=== PATIENT | female | born 1950 | race Caucasian/White ===

== ENCOUNTER → 2018-01-08 | Outpatient (CLI) | payer OTHER ==
[~2018-01-08] MED LIST: ALPHAGAN OPL; ASPEC325 PO; CHOL100010 PO; CLS1 PO; CLTP PO; CRG625 PO; CZR25 PO; HYDR-5688 PO; LACT1CAP6 PO; LOVAZA PO; OXYSR10 PO; PANT40TA PO; SNG10 PO
--- NOTE | 2018-01-08 10:01 | DIAGNOSTIC IMAGING REPORT ---
R ARTHROGRAM SHOULDER CLINICAL HISTORY: RIGHT SHOULDER PAIN, R/O ROTATOR CUFF TEARpain COMPARISON STUDY: None FLUOROSCOPY TIME: 0.5 minutes. FINDINGS: Following description of procedure and informed consent, a 20-gauge was inserted to the right shoulder joint space. This is followed by the administration of 10 cc of nonionic contrast. There are no complications. The patient was transferred to CT scanning for further evaluation. IMPRESSION: Right shoulder arthrogram injection. No complications of the time of the procedure. The above report was generated using voice recognition software. It may contain grammatical, syntax or spelling errors. Electronically signed by: Richard Fleming M.D. 01/08/2018 10:00 AM Dictated Date/Time: 01/08/2018 9:59 AM
--- NOTE | 2018-01-08 10:13 | DIAGNOSTIC IMAGING REPORT ---
UPPER EXTREMITY WITH CLINICAL HISTORY: R/O ROTATOR CUFF TEAR pain TECHNIQUE: CT acquisition transaxially with multi axial reformatted images. Prior right shoulder arthrogram COMPARISON STUDY: None FINDINGS: Mild degenerative change of the glenohumeral as well as acromioclavicular joints. Bony alignment is anatomic. Contrast extravasation into the subdeltoid and subacromial regions. Evidence for full-thickness tear of the mid anterior aspect of the supraspinatus tendon. All remaining components of the rotator cuff. To be intact. Biceps tendon is intact within the bicipital groove. Glenoid labrum appears to be unremarkable. IMPRESSION: 1. Findings consistent with a full-thickness tear of the mid to anterior margin of the supraspinatus tendon. 2. Mild degenerative changes of glenohumeral as well as acromioclavicular joints. 3. No additional acute abnormalities appreciated. The above report was generated using voice recognition software. It may contain grammatical, syntax or spelling errors. Electronically signed by: Richard Fleming M.D. 01/08/2018 10:12 AM Dictated Date/Time: 01/08/2018 10:06 AM
== END | disposition home or self-care (01) ==
LOC: C.CTS 08:48
PROVIDERS: ATTEND Orthopaedic Surgery
DX: M25.511 Pain in right shoulder (principal)

== ENCOUNTER → 2018-01-16 | Outpatient (CLI) | payer OTHER ==
--- NOTE | 2018-01-16 18:11 | DIAGNOSTIC IMAGING REPORT ---
THREE-PHASE NUCLEAR BONE SCAN OF THE KNEES CLINICAL HISTORY: Left knee pain. COMPARISON STUDY: Three-phase bone scan of the knees dated 10/29/2014. Radiographs of left knee dated 12/01/2014. TECHNIQUE: Following the IV administration of 25 mCi of technetium 99m MDP, three-phase bone scan of the knees was performed. Flow and blood pool phase imaging is performed both anteriorly and posteriorly. Bone phase imaging of the knees was performed at three hours in multiple obliquities. Note that interpretation is suboptimal without current plain film correlate. FINDINGS: There is no hyperemia identified involving either knee on the flow or blood pool phase images. On the bone phase images there is a photopenic defect consistent with a left knee arthroplasty. No significant abnormal tracer deposition is identified around the arthroplasty. Low-level uptake along the tibial component is likely within normal limits. Typically degenerative activity is identified in the right knee. IMPRESSION: Three-phase negative bone scan of the left knee. Electronically signed by: Jm Brandon M.D. 01/16/2018 6:10 PM Dictated Date/Time: 01/16/2018 6:07 PM
== END | disposition home or self-care (01) ==
LOC: C.NUCL 13:26
PROVIDERS: ATTEND Orthopaedic Surgery
DX: Z96.652 Presence of left artificial knee joint (principal)

== ENCOUNTER 2025-09-12 17:10 | Observation (INO) ==
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
[2025-09-12 18:47] LABS: Appearance Urine Clear (Clear); Bacteria Urine Automated None Seen (None Seen); Cast Urine Automated 0-2 /lpf (0-2); Epithelial Cell Urine Auto 0-2 /hpf (0-2); Glucose Urine UA Negative (Negative); RBC Urine Automated 0-2 /hpf (0-2); WBC Urine Automated 0-5 /hpf (0-5)
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
[2025-09-12 19:46] LABS: Chlamydia pneumoniae PCR Not Detected (NotDetected); Coronavirus 229E PCR Not Detected (NotDetected); Coronavirus CoV-2 (COVID19)PCR Not Detected (NotDetected); Coronavirus HKU1 PCR Not Detected (NotDetected); Coronavirus NL63 PCR Not Detected (NotDetected); Coronavirus OC43PCR Not Detected (NotDetected); Human Metapneumovirus PCR Not Detected (NotDetected); Parainfluenza Virus 1 PCR Not Detected (NotDetected); Parainfluenza Virus 2 PCR Not Detected (NotDetected); Parainfluenza Virus 3 PCR Not Detected (NotDetected); Parainfluenza Virus 4 PCR Not Detected (NotDetected); Respiratory Syncytial VirusPCR Not Detected (NotDetected); Rhinovirus/Enterovirus PCR Not Detected (NotDetected)
[2025-09-12 19:54] LABS: Hematocrit (blood only) 42.6 % (37.0-47.0); Hemoglobin 13.8 g/dl (12.0-16.0); Immature Granulocytes # (auto) 0.07 K/uL (0.01-0.20); Immature Granulocytes % (auto) 0.6 %; Mean Corpuscular Hemoglobin 27.8 pg (25.0-34.0); Mean Corpuscular Volume 85.9 fL (80.0-100.0); Platelet Count 370 K/uL (130-400); RDW Standard Deviation 40.7 fL (36.4-46.3); Red Blood Count 4.96 M/uL (4.20-5.40); White Blood Count 12.65 K/ul (4.8-10.8)
[2025-09-12 19:55] LABS: Base Excess VBG 5.2 mEq/L; HCO3 VBG 33 mmol/L; Oxygen Saturation VBG < 60.0 %; PCO2 VBG 59 mmHg (38-50); PO2 VBG 30 mmHg; pH VBG 7.35 (7.36-7.41)
[2025-09-12 20:11] LABS: Alanine Aminotransferase 18.0 U/L (7-52); Albumin Globulin Ratio 1.3 (0.9-2); Albumin Level 4.7 gm/dl (3.4-5.0); Alkaline Phosphatase 82.0 U/L (34-104); Anion Gap 9.0 (3-11); Bilirubin,Total 0.6 mg/dl (0.2-1.0); Blood Urea Nitrogen 14.0 mg/dl (6-23); Calcium 10.5 mg/dl (8.6-10.3); Carbon Dioxide 30.0 mmol/L (21-32); Chloride 102.0 mmol/L (98-107); Creatinine Clr Calc Pharmacy 48.8 ml/min; Globulin 3.7 gm/dl (2.5-4.0); Glucose 126.0 mg/dl (70-99(Fasting)); Magnesium 2.0 mg/dl (1.7-2.4); Potassium 3.9 mmol/L (3.5-5.1); Sodium 141.0 mmol/L (136-145); Total Protein 8.4 gm/dl (6.0-8.3)
[2025-09-12] MEDS: ACETAMINOPHEN 1,000 MG/100 ML VIAL IV STA (20:18)
[2025-09-12] MEDS: ONDANSETRON INJ 2 MG/ML 2 ML VIAL IV STA (21:46)
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
[2025-09-12] MEDS ORDERED: SODIUM CHLORIDE 0.65% NA SOLN 45 ML (OCEAN) PRN (22:39)
[2025-09-12] MEDS ORDERED: PROMETHAZINE 6.25 MG/50.25 ML BAG IV PRN (22:39)
[2025-09-12] MEDS ORDERED: ACETAMINOPHEN 325 MG TAB PO PRN (22:40)
[2025-09-12] MEDS: METOPROLOL TARTRATE 1 MG/ML VIAL IV STA (23:55)
[2025-09-12] MEDS: NSS + 20MEQ KCL 20 MEQ/1,000 ML BAG IV ONE (23:56)
[2025-09-13] MEDS: SODIUM CHLORIDE 0.65% NA SOLN 45 ML (OCEAN) ONE (00:10)
[2025-09-13] MEDS: BRIMONIDINE TARTRATE 0.2% 5ML OPL ONE (02:01)
[2025-09-13] MEDS: TRAVOPROST Z 0.004% OPH SOLN 2.5 ML BTL OPL SCH (02:01)
[2025-09-13] MEDS: METOPROLOL TARTRATE 1 MG/ML VIAL IV STA (02:13)
[2025-09-13] MEDS: POT PHOSPHATE MONOBASIC W/ SOD TAB PO STA (02:13)
[2025-09-13] MEDS: LOSARTAN POTASSIUM 50 MG TAB PO SCH (02:40)
[2025-09-13 03:06] LABS: Calcium 10.1 mg/dl (8.6-10.3)
[2025-09-13 05:11] LABS: Hematocrit (blood only) 37.2 % (37.0-47.0); Hemoglobin 12.7 g/dl (12.0-16.0); Immature Granulocytes # (auto) 0.04 K/uL (0.01-0.20); Immature Granulocytes % (auto) 0.4 %; Mean Corpuscular Hemoglobin 29.1 pg (25.0-34.0); Mean Corpuscular Volume 85.1 fL (80.0-100.0); Platelet Count 324 K/uL (130-400); RDW Standard Deviation 39.7 fL (36.4-46.3); Red Blood Count 4.37 M/uL (4.20-5.40); White Blood Count 10.66 K/ul (4.8-10.8)
[2025-09-13 05:26] LABS: Anion Gap 7.0 (3-11); Blood Urea Nitrogen 14.0 mg/dl (6-23); Calcium 9.5 mg/dl (8.6-10.3); Carbon Dioxide 28.0 mmol/L (21-32); Chloride 105.0 mmol/L (98-107); Creatinine Clr Calc Pharmacy 55.2 ml/min; Glucose 120.0 mg/dl (70-99(Fasting)); Potassium 4.2 mmol/L (3.5-5.1); Sodium 140.0 mmol/L (136-145)
[2025-09-13] MEDS: EZETIMIBE 10 MG TAB PO SCH (08:05)
[2025-09-13] MEDS: CYANOCOBALAMIN (B-12) 500 MCG TABLET PO SCH (08:05)
[2025-09-13] MEDS: CEROVITE ADV FORMULA TAB PO SCH (08:05)
[2025-09-13] MEDS: MONTELUKAST SODIUM 10 MG TABLET PO SCH (08:06)
[2025-09-13] MEDS: CHOLECALCIFEROL 125 MCG (5,000 UNITS) TAB PO SCH (08:06)
[2025-09-13] MEDS: ASPIRIN 81 MG ECTAB PO SCH (08:06)
[2025-09-13] MEDS: LORATADINE 10 MG TAB PO SCH (08:07)
[2025-09-13] MEDS: BRIMONIDINE TARTRATE 0.2% 5ML OPL SCH (08:08)
[2025-09-13] MEDS: ENOXAPARIN INJ 40 MG/0.4 ML SYR SQ SCH (08:08)
[2025-09-13] MEDS ORDERED: LOSARTAN POTASSIUM 50 MG TAB PO SCH (09:00)
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
--- NOTE | 2025-09-13 11:51 | Electrocardiogram Report ---
Test Reason : Blood Pressure : */* mmHG Vent. Rate : 77 BPM Atrial Rate : 77 BPM P-R Int : 172 ms QRS Dur : 90 ms QT Int : 374 ms P-R-T Axes : 43 12 49 degrees QTcB Int : 423 ms Normal sinus rhythm Normal ECG When compared with ECG of 23-Nov-2014 10:17, No significant change was found Confirmed by Damion Li ([id number]) on 09/13/2025 11:51:12 AM Referred By: REFERRED SELF Confirmed By: Damion Li
--- NOTE | 2025-09-13 14:52 | XCELERA ---
[id number]
[2025-09-13] MEDS: NITROGLYCERIN 2% OINTMENT 30GM TUBE EXT STA (15:03)
[2025-09-13] MEDS ORDERED: TIMOLOL MALEATE 0.5% OP SOLN 5 ML BTL OPL SCH (23:00)
== END 2025-09-13 15:07 | disposition home or self-care (01) ==
LOC: EDINP 17:10 → ED 17:10 → EDINP 09-13 02:06